=== PATIENT | female | born 1965 | race Caucasian/White ===

== ENCOUNTER 2016-09-10 11:08 | Day surgery (SDC) | payer OTHER ==
[~2016-09-10] VITALS: Ht 160 cm; Wt 89.6 kg
[2016-09-10] VITALS (8 sets, daily range): BP systolic 117–131; BP diastolic 61–75; PULSE 51–67; TEMP 98.1–98.8
[2016-09-10] MEDS ORDERED: PERCOCET 325 MG1 TA2 PO (12:09)
[2016-09-10] MEDS ORDERED: MOTRIN 800800 MG/TAB PO (12:09)
[2016-09-10] MEDS ORDERED: MULTIVITAMIN1 CTB PO (12:16)
[2016-09-10] MEDS ORDERED: VITAMINC500CH PO (12:17)
[2016-09-10] MEDS ORDERED: VITAMIN D3400 I1 PO (12:17)
[2016-09-10] MEDS ORDERED: ASPIRIN 81M81 MG/TA2 PO (12:18)
[2016-09-10] MEDS ORDERED: CALCIUM-500 5001 CTB PO (12:18)
[2016-09-10 13:04] LABS: HEMATOCRIT 35.4 % (37.0-47.0); HEMOGLOBIN 11.7 g/dl (12.5-16.0)
[2016-09-11 00:51] VITALS: BP 115/59; PULSE 63; TEMP 98.2
[2016-09-11 04:39] VITALS: BP 104/58; PULSE 62; TEMP 98.3
[2016-09-11 07:38] LABS: HEMOGLOBIN 10.4 g/dl (12.5-16.0)
[2016-09-11 08:00] VITALS: BP 105/59; PULSE 61; TEMP 98
== END 2016-09-11 09:15 | disposition home or self-care (01) ==
LOC: SDCO 11:08 → OB 19:34 → SDCO 09-11 09:15
PROVIDERS: Obstetrics & Gynecology
DX: N92.0 Excessive and frequent menstruation with regular cycle (principal); D64.9 Anemia, unspecified; N88.8 Other specified noninflammatory disorders of cervix uteri; Z80.3 Family history of malignant neoplasm of breast; Z80.1 Family history of malignant neoplasm of trachea, bronchus and lung; Z80.8 Family history of malignant neoplasm of other organs or systems
CPT/HCPCS: OP; A4315; C1713; E0710; J0690; J1100; J1885; J2270; J2405; J2704; J3010; J7120

== ENCOUNTER → 2017-06-19 | Outpatient (CLI) | payer OTHER ==
[~2017-06-19] MED LIST: ASPIRIN 81M81 MG/TA2 PO; CALCIUM-500 5001 CTB PO; MOTRIN 800800 MG/TAB PO; MULTIVITAMIN1 CTB PO; PERCOCET 325 MG1 TA2 PO; VITAMIN D3400 I1 PO; VITAMINC500CH PO
== END ==
LOC: MC.RAD 12:47
DX: Z12.31 Encounter for screening mammogram for malignant neoplasm of breast (principal)

== ENCOUNTER → 2018-06-24 | Outpatient (CLI) | payer OTHER | LOC: MC.RAD 14:48 | DX: Z12.31 Encounter for screening mammogram for malignant neoplasm of breast (principal) ==

== ENCOUNTER → 2019-06-26 | Outpatient (CLI) | payer OTHER | LOC: MC.RAD 14:00 | DX: Z12.31 Encounter for screening mammogram for malignant neoplasm of breast (principal) ==

== ENCOUNTER → 2020-06-27 | Outpatient (CLI) | payer OTHER | LOC: MC.RAD 14:35 | DX: Z12.31 Encounter for screening mammogram for malignant neoplasm of breast (principal) ==

== ENCOUNTER → 2021-07-03 | Outpatient (CLI) | payer OTHER | LOC: MC.RAD 12:50 | DX: Z13.21 Encounter for screening for nutritional disorder (principal) ==

== ENCOUNTER → 2023-08-15 | Outpatient (CLI) | payer BC | LOC: CANSCHCLI → MC.RAD 12:47 | DX: Z12.31 Encounter for screening mammogram for malignant neoplasm of breast (principal) ==